=== PATIENT | male | born 1955 | race Caucasian/White ===

== ENCOUNTER 2021-08-07 16:06 | Emergency (ER) | payer OTHER, SELFPAY ==
--- NOTE | ~2021-08-07 | XR_ITS ---
EXAMINATION: XR chest 1V portable EXAM DATE: 08/07/2021 17:13 INDICATION: Cough, COVID +, TECHNIQUE: Portable AP frontal chest x-ray was obtained. There are no prior studies for comparison. FINDINGS: The lungs are clear. There are no pleural effusions. The cardiomediastinal silhouette is within normal limits. There is no pneumothorax suspected. The bones and soft tissues are unremarkab le. IMPRESSION: No acute cardiopulmonary findings. Reviewed, dictated and finalized at location A. [facility]
[2021-08-07 16:12] VITALS: BP 142/84; PULSE 106; RESP 16; TEMP 36.6; O2SAT 96
--- NOTE | 2021-08-07 16:13 | PC.NURSE ---
Patient friend called and reports that patient appears to just be off compared to his normal. Just does not seem to be acting himself. Patient alert and oriented at time of assessment.
[2021-08-07 16:49] VITALS: BP 132/78; PULSE 88; RESP 18; TEMP 36.8; O2SAT 97
--- NOTE | 2021-08-07 21:12 | ED.GENADULT ---
HPI - General Adult General Chief complaint: Upper Respiratory Infection <David Martin PA-C - Last Filed: 08/07/21 21:15> Stated complaint: Covid+, SOB <PENG Juan Last Filed: 08/07/21 21:15> Time Seen by Provider: 08/07/21 16:54 <David Martin PA-C - Last Filed: 08/07/21 21:15> Source: patient <PENG Juan Last Filed: 08/07/21 21:15> Mode of arrival: ambulatory <PENG Juan Last Filed: 08/07/21 21:15> Limitations: no limitations <PENG Juan Last Filed: 08/07/21 21:15> History of Present Illness HPI narrative: Patient presents with chief complaint of testing Covid positive. Patient reports that he wanted to have himself checked out as his girlfriend is Covid positive as well and is very sick. Patient denies being short of breath or chest pain. Patient denies being febrile. Patient is not vaccinated. Patient estimates that he has had Covid for approximately 1 week. <David Martin PA-C - Last Filed: 08/07/21 21:15> Related Data Allergies/adverse reactions: Allergies Allergy/AdvReac Type Severity Reaction Status Date / Time No Known Allergies Allergy Verified 08/07/21 16:54 <David Martin PA-C - Last Filed: 08/07/21 21:15> Review of Systems Review of Systems: CONSTITUTIONAL: Denies fever, chills, or sweats. EYES: Denies visual changes, redness, or discharge. ENT: Denies rhinorrhea, congestion, sore throat, or otalgia. CARDIOVASCULAR: Denies chest pain, palpitations, or edema. RESPIRATORY: Reports occasional cough denies dyspnea. GASTROINTESTINAL: Denies abdominal pain, nausea, vomiting, or diarrhea. GENITOURINARY: Denies dysuria or hematuria. SKIN: Denies rash or itching. MUSCULOSKELETAL: Denies back pain, joint pain, or myalgia. NEUROLOGIC: Denies headache, numbness, dizziness, or weakness. PSYCHIATRIC: Denies anxiety or depression. <David Martin PA-C - Last Filed: 08/07/21 21:15> Exam Narrative: GENERAL: Well-appearing, well-nourished, and in no acute distress. Patient sitting in room with mask of his face, door open. HEAD: Normocephalic, atraumatic. EYES: PERRLA and EOMI. CHEST: Speaking in full clear sentences without difficulty. No respiratory distress. No tachypnea.. EXTREMITIES: Normal range of motion. No edema. SKIN: Warm, dry, no rash. NEURO: No focal deficits. Alert and oriented x3. PSYCH: Normal mood and affect. <David Martin PA-C - Last Filed: 08/07/21 21:15> Course Course Emergency Course: I did not see this patient nor was the care plan discussed with me. I was available for evaluation and consultation, I agree with the documentation <Alex Espinoza MD - Last Filed: 08/07/21 22:04> Vital Signs Vital signs: Vital Signs Temperature 36.6 C 08/07/21 16:12 Pulse Rate 106 H 08/07/21 16:12 Respiratory Rate 16 08/07/21 16:12 Blood Pressure 142/84 H 08/07/21 16:12 Pulse Oximetry 96 08/07/21 16:12 Temperature 36.8 C 08/07/21 16:49 Pulse Rate 88 08/07/21 16:49 Respiratory Rate 18 08/07/21 16:49 Blood Pressure 132/78 08/07/21 16:49 Pulse Oximetry 97 08/07/21 16:49 <David Martin PA-C - Last Filed: 08/07/21 21:15> Vital Signs Temperature 36.6 C 08/07/21 16:12 Pulse Rate 106 H 08/07/21 16:12 Respiratory Rate 16 08/07/21 16:12 Blood Pressure 142/84 H 08/07/21 16:12 Pulse Oximetry 96 08/07/21 16:12 Temperature 36.8 C 08/07/21 16:49 Pulse Rate 88 08/07/21 16:49 Respiratory Rate 18 08/07/21 16:49 Blood Pressure 132/78 08/07/21 16:49 Pulse Oximetry 97 08/07/21 16:49 <Alex Espinoza MD - Last Filed: 08/07/21 22:04> Medical Decision Making MDM Narrative Medical decision making narrative: Patient is not hypoxic. He does not have chest pain. Vital signs are stable. Patient is not having dyspnea or other emergent symptoms. Patient has been instructed that he needs to follow quarantine guidelines.
== END 2021-08-07 18:28 | disposition home or self-care (01) ==
PROVIDERS: Emergency Provider Emergency Medicine
DX: U07.1 COVID-19 (principal)
CPT/HCPCS: 71045; 99283